=== PATIENT | female | born 1960 | race Caucasian/White ===

== ENCOUNTER → 2023-11-29 07:14 | Outpatient (REF) | payer BC, SELFPAY | LOC: WDC 07:14 | PROVIDERS: ATTENDING PHYSICIAN Obstetrics & Gynecology | DX: Z12.31 Encounter for screening mammogram for malignant neoplasm of breast (principal) | CPT/HCPCS: 77063; 77067 ==

== ENCOUNTER → 2024-02-29 09:31 | Outpatient (REF) | payer BC, SELFPAY | LOC: WDC 09:31 | PROVIDERS: ATTENDING PHYSICIAN Student in an Organized Health Care Education/Training Program; FAMILY PHYSICIAN Physician Assistant Medical | DX: N64.52 Nipple discharge (principal) | CPT/HCPCS: 76642; 77061; 77065 ==

== ENCOUNTER → 2024-12-27 14:57 | Outpatient (REF) | payer BC, SELFPAY | LOC: WDC 14:57 | PROVIDERS: ATTENDING PHYSICIAN Obstetrics & Gynecology; FAMILY PHYSICIAN Physician Assistant Medical | DX: Z12.31 Encounter for screening mammogram for malignant neoplasm of breast (principal) | CPT/HCPCS: 77063; 77067 ==

== ENCOUNTER → 2025-01-09 08:09 | Outpatient (REF) | payer BC, SELFPAY | LOC: RAD 08:09 | PROVIDERS: ATTENDING PHYSICIAN Physician Assistant Medical | DX: Z13.820 Encounter for screening for osteoporosis (principal) | CPT/HCPCS: 77080 ==

== ENCOUNTER → 2025-01-15 08:32 | Outpatient (REF) | payer BC, SELFPAY | LOC: WDC 08:32 | PROVIDERS: ATTENDING PHYSICIAN Obstetrics & Gynecology; FAMILY PHYSICIAN Physician Assistant Medical | DX: R92.8 Other abnormal and inconclusive findings on diagnostic imaging of breast (principal) | CPT/HCPCS: 77065 ==

== ENCOUNTER → 2025-01-27 07:06 | Outpatient (REF) | payer BC, SELFPAY ==
--- NOTE | 2025-01-27 09:25 | OID.BR.INTR ---
[facility] Breast Navigator - Initial
- -
Date of Contact: 01/27/25
Met with patient. Patient given written information on navigator service available at [facility]. Will follow up as needed per protocol.
== END ==
LOC: WDC 07:06
PROVIDERS: ATTENDING PHYSICIAN Obstetrics & Gynecology; FAMILY PHYSICIAN Physician Assistant Medical
DX: R92.1 Mammographic calcification found on diagnostic imaging of breast (principal)
CPT/HCPCS: 19081; 76098; 88305; 88341; 88342; 88360; A4648

== ENCOUNTER → 2025-02-18 14:40 | Outpatient (REF) | payer BC, SELFPAY | LOC: WDC 14:40 | PROVIDERS: ATTENDING PHYSICIAN Surgery | DX: R92.2 Inconclusive mammogram (principal); D05.91 Unspecified type of carcinoma in situ of right breast | CPT/HCPCS: 76641 ==

== ENCOUNTER → 2025-03-03 07:13 | Outpatient (REF) | payer BC, SELFPAY | LOC: WDC 07:13 | PROVIDERS: ATTENDING PHYSICIAN Surgery | DX: D05.91 Unspecified type of carcinoma in situ of right breast (principal) | CPT/HCPCS: 19281; A4648 ==

== ENCOUNTER 2025-03-04 06:10 | Day surgery (SDC) | payer BC, SELFPAY ==
[2025-02-21 09:24] LABS: Hematocrit 37.6 % (37.0-47.0); Hemoglobin 12.8 g/dL (12.0-16.0); Mean Corp Hgb Conc. 34.0 g/dL (33.0-37.0); Mean Corpuscular Volume 94.2 fL (81.0-99.0); Platelet Count 218 10^3/uL (130-400); Red Cell Dist. Width 12.3 % (11.5-14.5)
[2025-02-21 10:16] LABS: ALT (SGPT) 34 U/L (0-35); AST (SGOT) 23 U/L (14-36); Albumin 4.7 g/dl (3.5-5.0); Alkaline Phosphatase 51 U/L (38-126); Blood Urea Nitrogen 17 mg/dl (7-17); Calcium 9.2 mg/dl (8.4-10.2); Carbon Dioxide 33 mmol/L (22-30); Chloride 101 mmol/L (98-107); Glucose 101 mg/dl (70-99); Potassium 4.6 mmol/L (3.5-5.1); Sodium 137 mmol/L (135-145); Total Protein 7.3 g/dl (6.3-8.2); eGFR > 60.00
[2025-02-21 10:36] LABS: Vitamin D, 25-OH*** 43.7 ng/mL (30-80)
[2025-02-21 12:02] LABS: Prealbumin (Transthyretin) 27.6 mg/dl (17.6-36.0)
[2025-02-21 13:44] VITALS: BMI 24.9
[2025-03-04 11:04] VITALS: BP 174/99; BMI 24.9
[2025-03-04] MEDS: TYLENOL 1000 MG PO (11:15)
[2025-03-04] MEDS: VANCOCIN 200 IV (12:15)
[2025-03-04] MEDS: NORMOSOL-R/PLASMALYTE-A 1000 IV (12:20)
[2025-03-04] MEDS: LOVENOX 40 MG SC (12:50)
[2025-03-04 14:58] VITALS: BP 110/73
[2025-03-04 15:00] VITALS: BP 101/73
[2025-03-04 15:16] VITALS: BP 139/83
[2025-03-04 15:30] VITALS: BP 146/92
--- NOTE | 2025-03-11 16:04 | W.IMMPOSTOP ---
Surgical Immed Post Op Note
-
Primary Surgeon: Kevin
Assisting Surgeon: None
Pre-op Diagnosis: right breast DCIS
Post-op Diagnosis: Same
Procedure Performed: right localized lumpectomy
Anesthesia Type: TIVA
Specimen / Cultures: right localized lumpectomy
Estimated Blood Loss: 4cc
Complications: None
Operative Findings: clip and reflector in speciment
--- NOTE | 2025-03-11 16:06 | OR.RPT ---
Operative Report
Operative Report
Date of procedure: 03/04/2025
Surgeon: Kevin
Preoperative diagnosis: Right breast DCIS
Postoperative diagnosis: Same
Procedure: Right localized lumpectomy
The patient is a 65-year-old female who developed an interval change on screening mammography leading to stereotactic biopsy showing DCIS of the right breast. She presents for right localized lumpectomy. On the day prior to the procedure she
presented to the [place] [facility] where a Aruna reflector was placed at the site of the DCIS. On the day of the procedure she presented to the same-day surgical services unit. She verified site and procedure and was prepped. DVT and
antibiotic prophylaxis were provided. She was taken to the operating room and in the supine position intravenous sedation was delivered. The right breast was prepped and draped in usual sterile fashion and all team members performed an appropriate
timeout procedure.
Tissues were anesthetized with 1% lidocaine plain and a curvilinear incision was made overlying the area of highest external gamma count. Skin flaps were elevated with the cautery and dissection was carried down to the appropriate area using the
cautery. A wide lumpectomy was performed and time out of body was noted. The specimen was oriented for the pathologist and specimen radiography confirmed the presence of clip and reflector within it. Additional margins were harvested for
permanent analysis from the posterior, medial, superior, lateral, inferior, and anterior dimensions. These were oriented as well. Hemostasis was verified. Marcaine 0.5% plain was instilled into all tissues and hemoclips were placed in the
resection cavity.
The wound was closed using simple interrupted 2-0 Polysorb on deep intermediate and subcutaneous tissue and skin was closed with a running subcuticular 4-0 Monocryl with a few simple interrupted external Monocryl structures support. Surgical glue
and sterile compressive dressing were applied. All sponge needle and instrument counts were correct and the patient was transferred to the recovery room in stable condition
()
== END 2025-03-04 15:50 | disposition home or self-care (01) ==
LOC: SDS 06:10
PROVIDERS: ATTENDING PHYSICIAN Surgery; FAMILY PHYSICIAN Physician Assistant Medical; OTHER PHYSICIAN Internal Medicine Cardiovascular Disease
DX: D05.91 Unspecified type of carcinoma in situ of right breast (principal); D05.11 Intraductal carcinoma in situ of right breast
CPT/HCPCS: 19301; 76098; 80053; 82306; 84134; 85027; 88305; 88307; 88341; 88342; 88360